=== PATIENT | female | born 1990 | race Caucasian/White ===

== ENCOUNTER 2017-12-30 09:03 | Emergency (ER) | payer OTHER ==
[~2017-12-30] VITALS: Ht 154.9 cm; Wt 57.6 kg
[2017-12-30 09:07] VITALS: BP 107/69
[2017-12-30] MEDS ORDERED: HYDROCODON-ACE1 EAC2 PO (09:39)
[2017-12-30] MEDS ORDERED: AMOXICILLIN875 M1 PO (09:39)
--- NOTE | 2017-12-30 09:40 | ED EAR COMPLAINT ---
History of Present Illness General Chief Complaint: Ear Complaints Stated Complaint: R EAR PAIN Source: patient Exam Limitations: no limitations Vital Signs & Intake/Output Vital Signs & Intake/Output Vital Signs Date Time Temp Pulse Resp B/P B/P Pulse O2 O2 Flow FiO2 Mean Ox Delivery Rate 12/30 0907 99.4 84 20 107/69 98 Room Air Allergies Coded Allergies: No Known Allergies (12/30/17) Reconcile Medications Amoxicillin 875 MG TABLET 1 TAB PO BID otitis externa Hydrocodone/Acetaminophen (Hydrocodon-Acetaminophen 5-325) 5 MG-325 MG TABLET 1-2 TAB PO Q4-6 PRN PRN pain Triage Note: RIGHT EAR PAIN SINCE SATURDAY. WENT TO URGENT CARE ON SATURDAY AND RX'D GTTS BUT PT STATES PAIN IS GETTING WORSE Triage Nurses Notes Reviewed? yes Onset: Abrupt Duration: day(s): Timing: recent history Injury Environment: home Severity: moderate, severe No Modifying Factors: none : No Patient currently breastfeeds: No HPI: 27-year-old female comes into the emergency room for further evaluation of right ear pain. Patient was diagnosed with an ear infection yesterday and prescribed drops at urgent care center. She reports increased pain today in for further evaluation. Sharp throbbing. Some mild sinus congestion but denies any other associated symptoms. (Denys Tariq) Past History Travel History Traveled to [place] past 21 day No Medical History Any Pertinent Medical History? none Surgical History Surgical History: non-contributory Psychosocial History What is your primary language Greek Tobacco Use: Never used ETOH Use: occasional use Illicit Drug Use: denies illicit drug use Family History Hx Contributory? No (Denys Tariq) Review of Systems Review of Systems Constitutional: Reports: no symptoms. EENTM: Reports: see HPI. Respiratory: Reports: no symptoms. Cardiovascular: Reports: no symptoms. GI: Reports: no symptoms. Genitourinary: Reports: no symptoms. Musculoskeletal: Reports: no symptoms. Skin: Reports: no symptoms. Neurological/Psychological: Reports: no symptoms. Hematologic/Endocrine: Reports: no symptoms. Immunologic/Allergic: Reports: no symptoms. All Other Systems: Reviewed and Negative (Denys Tariq) Physical Exam Physical Exam General Appearance: well developed/nourished, mild distress Head: atraumatic Eyes: Bilateral: normal appearance. Ears: Right: erythema (RIGHT EAC), swelling (RIGHT EAC). Nose: normal inspection Mouth/Throat: pharynx normal Neck: normal inspection Cardiovascular/Respiratory: no respiratory distress Back: normal inspection Neurologic/Psych: awake, alert, oriented x 3, normal mood/affect Skin: intact, normal color, warm/dry (Denys Tariq) Progress Differential Diagnoses I considered the following diagnoses in my evaluation of the patient: Otitis externa, otitis media, perforation, foreign body, Plan of Care: 12/30/2017 10:06:13 AM Ear wick placed in the right ear. She was referred to ear nose and throat doctor. Started on oral antibiotics and prescribed Vicodin for pain. Initial ED EKG: none (Denys aTriq) Departure Departure Disposition: HOME OR SELF CARE Condition: Stable Clinical Impression Primary Impression: Right otitis externa Referrals: Topher TUBBS,Richard Cervantes Rai, MD,[place]iki (PCP/Family) Additional Instructions: Take amoxicillin and Vicodin as prescribed. Continue to take Ciprodex drops as prescribed. Follow-up with ear nose and throat doctor for ear wick removal. Please go over all results of today's visit with your primary care doctor. Contact your primary care doctor to let them know you were here in the emergency room. There may be nonspecific findings which may not be related to your visit today here in the emergency room but may require further evaluation and chronic monitoring by your primary care doctor. If you had a laceration today the chance of foreign body always remains. You should follow-up with your primary care doctor for recheck in 3-5 days for a wound check. If you had an x-ray done there is a chance that a fracture could have been missed on initial read and you should follow-up with your primary care doctor for repeat x-rays if symptoms persist. If your blood pressure was elevated here in the emergency room please have rechecked by [facility] primary care doctor within the next 48. If you were prescribed a narcotic here in the emergency room or any type of controlled substances you're not allowed to drive while taking this medication or operate any type of heavy machinery. Narcotics can make you feel lightheaded dizziness nausea and can cause constipation. You may need to parts picker a stool softener. Thank you for choosing [facility] emergency room. Please return to the emergency room immediately if you have any other concerns worsening of symptoms. Departure Forms: Customer Survey General Discharge Information Prescriptions: Current Visit Scripts Amoxicillin 1 TAB PO BID #20 TAB Hydrocodone/Acetaminophen (Hydrocodon-Acetaminophen 5-325) 1-2 TAB PO Q4-6 PRN PRN pain #15 TAB (Denys Tariq) PA/LINE UP MACHINE OPERATOR Co-Sign Statement Statement: ED Attending supervision documentation- [] I saw and evaluated the patient. I have also reviewed all the pertinent lab results and diagnostic results. I agree with the findings and the plan of care as documented in the PA's/LINE UP MACHINE OPERATOR's documentation. [X] I have reviewed the ED Record and agree with the PA's/LINE UP MACHINE OPERATOR's documentation. [] Additions or exceptions (if any) to the PAs/LINE UP MACHINE OPERATOR's note and plan are summarized below: [] (Ben Sifuentes DO
== END 2017-12-30 10:35 ==
LOC: ERH 09:03
DX: H60.91 Unspecified otitis externa, right ear (principal); H92.01 Otalgia, right ear